=== PATIENT | male | born 1980 | race Caucasian/White ===

== ENCOUNTER 2018-04-03 12:14 | Emergency (ER) | payer MEDICAID ==
[2018-04-03 12:18] VITALS: BMI 21.7
[2018-04-03 12:20] VITALS: BP 127/87; PULSE 95; RESP 18; TEMP 98.2; O2SAT 100
--- NOTE | 2018-04-03 12:34 | ED PDOC ---
Arrival/HPI - General Chief Complaint: Finger,Hand,&Wrist Time Seen by Provider: 04/03/18 12:23 Historian: Patient - History of Present Illness Time/Duration: Other (4 days) Symptom Onset: Sudden Symptom Course: Unchanged Severity Level: Severe Associated Symptoms (Text): 04/03/18 12:33 Patient reports that 4 days prior to arrival he smashed his nondominant left middle finger between a heavy metal and a table. Past Medical History - Infectious Disease Hx of Infectious Diseases: None - Cardiac Hx Hypertension: Yes - Psychiatric Hx Substance Use: No - Surgical History Hx Orthopedic Surgery: Yes (L elbow + screws) Family/Social History - Physician Review Nursing Documentation Reviewed: Yes Family/Social History: Unknown Family HX Smoking Status: Heavy Smoker > 10 Cigarettes Daily Hx Alcohol Use: No Hx Substance Use: No Allergies/Home Meds Allergies/Adverse Reactions: Allergies No Known Allergies Allergy (Verified 04/03/18 12:18) Review of Systems - Physician Review All systems were reviewed & negative as marked: Yes Physical Exam Vital Signs Temp Pulse Resp BP Pulse Ox 04/03/18 12:19 98.2 F 95 H 18 127/87 100 Temperature: Afebrile Blood Pressure: Normal Pulse: Regular Respiratory Rate: Normal Appearance: Positive for: Well-Appearing, Non-Toxic, Uncomfortable Pain Distress: Moderate Mental Status: Positive for: Alert and Oriented X 3 - Systems Exam Upper Extremity: Present: NORMAL PULSES, Tenderness, Swelling, Neurovascularly Intact, Other (Left middle finger swollen and tender with limited range of motion. Good capillary refill. The DIP and PIP joints are swollen and tender). No: Normal Inspection, Cyanosis, Edema, Normal ROM, Erythema Medical Decision Making - RAD Interpretation Radiology Orders: 04/03/18 12:27 HAND LEFT 3RD DIGIT (FINGER) [RAD] Stat Spiral fracture middle phalanx left middle finger. Beck Tender: ED Physician Disposition/Present on Arrival - Present on Arrival Any Indicators Present on Arrival: No History of DVT/PE: No History of Uncontrolled Diabetes: No Urinary Catheter: No History of Decub. Ulcer: No History Surgical Site Infection Following: None - Disposition Have Diagnosis and Disposition been Completed?: Yes Diagnosis: Fracture of middle phalanx of finger of left hand Disposition: HOME/ ROUTINE Disposition Time: 12:44 Patient Plan: Discharge Condition: GOOD Discharge Instructions (ExitCare): Finger Fracture (DC) Additional Instructions: Follow-up with orthopedist. Follow up in ER as needed. Prescriptions: Tramadol HCl [Ultram] 50 mg PO Q6 PRN #10 tab PRN Reason: Pain Referrals: Glen Hoyt MD [Primary Care Provider] - Follow up with primary Juan Villafuerte MD [Staff Provider] - Follow up with primary Forms: [facility] ([employer]), WORK NOTE
--- NOTE | 2018-04-03 13:16 | RAD ---
PROCEDURE: Left Hand Radiographs. HISTORY: trauma COMPARISON: None. FINDINGS: BONES: There is a comminuted minimally displaced fracture of the 3rd middle phalanx. The fracture extends to the proximal articular surface JOINTS: Normal. No osteoarthritic changes. SOFT TISSUES: Normal. OTHER FINDINGS: None. IMPRESSION: There is a comminuted minimally displaced fracture of the 3rd middle phalanx. The fracture extends to the proximal articular surface
== END 2018-04-03 12:56 | disposition home or self-care (01) ==
LOC: ED 12:14
DX: S62.623A Displaced fracture of middle phalanx of left middle finger, initial encounter for closed fracture (principal); W23.0XXA Caught, crushed, jammed, or pinched between moving objects, initial encounter; Y92.9 Unspecified place or not applicable